=== PATIENT | male | born 2000 | race Two or more races ===

== ENCOUNTER 2024-04-13 05:21 | Emergency (ER) | payer SELFPAY ==
[2024-04-13 05:28] VITALS: BP 162/85; PULSE 83; TEMP 36.7; O2SAT 97; BMI 25.1
--- NOTE | 2024-04-13 05:43 | PC.NURSE ---
Pt presents to ER for a lump on his right testicle pt states this has been ongoing for 2 months Pt states he went to a clinic in [place] and was given a shot of something and Cipro Pt states he went back to the clinic 2 weeks ago and was given Flagyl and doxycycline - pt states he finished this course of antibiotics pt states they did not test him for any STD's but did test him for a UTI which was negative Pt states the lump size and pain level fluctuates depending on his daily activities
--- NOTE | 2024-04-13 06:38 | US_ITS ---
[facility] [id number] Patient Name: COCO PEREZ MRN: [id number] date: 2000 Sex: M Assigned Patient Location: ED.MAIN Current Patient Location: Accession/Order Number: [id number] Exam Date: 04/13/2024 07:08 Report Date: 04/13/2024 07:49 At the request of: ANUP MARKER Procedure: US scrotum doppler EXAMINATION: US scrotum doppler HISTORY: Right scrotal mass COMPARISON: No relevant comparison available. TECHNIQUE: High-resolution sonographic imaging of the scrotum and contents was performed. FINDINGS: RIGHT: TESTICLE: Homogeneous echotexture. No visible mass. Color Doppler flow is present. Spectral Doppler demonstrates normal arterial waveform and flow, 6/3 cm/s (PSV/EDV), and normal venous wave flow averaging 1 cm/s. EPIDIDYMIS: 6 mm cyst within head of left epididymis; otherwise unremarkable. OTHER: None. LEFT: TESTICLE: Homogeneous echotexture. No visible mass. Color Doppler flow is present. Spectral Doppler demonstrates arterial waveform and flow, 4/2 cm/s (PSV/EDV), and normal venous flow averaging 1 cm/s. EPIDIDYMIS: Normal size and echogenicity. OTHER: None. US/US scrotum doppler IMPRESSION: 1. Right epididymal head cysts which may account for the palpable lump. No suspicious findings. 2. Normal appearance of testicles bilaterally. 3. No hydrocele, significant varicocele, or appreciable mass. Electronically authenticated by: MICHAEL ARRIAZA Date: 04/13/2024 07:49
--- NOTE | 2024-04-13 06:38 | ED_ITS ---
HPI - Male Genitourinary General Chief complaint: Urogenital-Male Stated complaint: LUMP/BUMP Time Seen by Provider: 04/13/24 06:38 Source: patient Mode of arrival: walk-in Limitations: no limitations History of Present Illness HPI Narrative: This 23-year-old male presents for evaluation of a lump in his right scrotum. He states it has been there for the past several months. He has been seen several times at urgent care and placed on antibiotics. He states that since he has been on the antibiotics the lump has gone down. He explained to the nurse doing his triage that it was hurting him tonight. He is having a difficult time finding it in his scrotum during the exam. He denies any penile discharge. He states that his urine is bubbly. He states he has not been sexually active for over 1 year. He does not have any weight loss or night sweats. Related Data Allergies Allergy/AdvReac Type Severity Reaction Status Date / Time No Known Drug Allergies Allergy Verified 04/13/24 05:34 Review of Systems ROS Status of ROS 10 or more systems reviewed and unremark able except as noted in history and below Exam Narrative Exam Narrative: Exam chaperoned by Suri VARGAS Vital signs and Nursing Notes reviewed: Patient is afebrile with a normal pulse, blood pressure is elevated at 162/85, he is not hypoxic with pulse ox of 97% on room air General: Awake, alert, oriented, no acute distress, lying comfortably on the stretcher HEENT: Normocephalic atraumatic, mucous membranes are moist and pink, eyes are clear, normal conjunctiva, vision is grossly intact, posterior pharynx is normal in appearance. Chest: Lungs are clear to auscultation with good air entry, there is no wheezing rhonchi or rales appreciated no accessory muscle use, patient is speaking in complete sentences-no chest wall tenderness to palpation CVS: Regular rate and rhythm S1-S2, no murmurs rubs or gallops, pulses are brisk and equal bilaterally ABD: Soft, nondistended, nontender, no rebound guarding or rigidity, bowel sounds are normal, no pulsatile masses appreciated : Testicles are descended with a normal lie, I am unable to appreciate any mass in the patient's right or left testicle. No inguinal lymphadenopathy appreciated Extremities: Moving all extremities, no lower extremity tenderness or swelling noted, negative Homans' sign, pulses are brisk and equal bilaterally Skin: Normal in appearance without rash,pallor, petechiae or purpura Neuro: No focal deficits Constitutional Vital Signs, click to edit/add: Last Vital Signs Temp 98.1 F 04/13/24 05:28 Pulse 83 04/13/24 05:28 Resp 16 04/13/24 05:28 BP 162/85 H 04/13/24 05:28 Pulse Ox 97 04/13/24 05:28 Course Vital Signs Vital signs: Vital Signs Temperature 98.1 F 04/13/24 05:28 Pulse Rate 83 04/13/24 05:28 Respiratory Rate 16 04/13/24 05:28 Blood Pressure 162/85 H 04/13/24 05:28 Pulse Oximetry 97 04/13/24 05:28 Temperature 98.1 F 04/13/24 05:28 Pulse Rate 83 04/13/24 05:28 Respiratory Rate 16 04/13/24 05:28 Blood Pressure 162/85 H 04/13/24 05:28 Pulse Oximetry 97 04/13/24 05:28 MDM - Male Genitourinary MDM Narrative Medical decision making narrative: This 23-year-old male presents for evaluation of over 2 months of a lump in his right testicle. He has been seen in urgent care several times but has not had an ultrasound. He has been on several different antibiotics and states that the antibiotics helped the lump go down . He has a small pustule on the scrotal skin on the left. I am unable to appreciate any abnormality in the right testicle. Patient has normal testicular lie, normal cremasteric reflex, no mass appreciated. I did order an ultrasound as he has had this for greater than 2 months without an ultrasound. He will be signed out to the oncoming physician at 7 AM. Discharge Plan Discharge Chief Complaint: Urogenital-Male Clinical Impression: Scrotal anomaly Patient Disposition: Still a Patient Print Language: Azerbaijani Referrals: Physician,Non-Staff, [Primary Care Provider] - 1 week
[2024-04-13 08:06] LABS: Bilirubin Urine SMALL (NEGATIVE); Blood Urine NEGATIVE (NEGATIVE); Clarity Urine CLEAR (CLEAR); Color Urine YELLOW (YELLOW); Glucose Urine UA NEGATIVE (NEGATIVE); Ketones Urine 15 mg/dL (NEGATIVE); Leukocyte Esterase Urine NEGATIVE (NEGATIVE); Nitrite Urine NEGATIVE (NEGATIVE); Protein Urine NEGATIVE (NEG/TRACE); Specific Gravity Urine >=1.030 (1.005-1.025); Urobilinogen Urine 0.2 EU/dL (0.2-1.0)
[2024-04-13 08:20] LABS: Bacteria Urine NONE SEEN #/HPF (NONE SEEN); RBC Urine NONE SEEN #/HPF (0-2); WBC Urine NONE SEEN #/HPF (NONE SEEN)
[2024-04-13 08:21] LABS: Cast Seen? NONE SEEN #/LPF (NONE SEEN); Crystals Seen? None Seen #/HPF (None Seen); Mucus Urine LARGE (NONE SEEN); Squamous Epithelial Cell Urine NONE SEEN #/LPF (NONE/RARE)
== END 2024-04-13 08:10 | disposition home or self-care (01) ==
PROVIDERS: Emergency Medicine; Emergency Provider Emergency Medicine Emergency Medical Services
DX: N50.3 Cyst of epididymis (principal)
CPT/HCPCS: 76870; 81001; 93976; 99284

== ENCOUNTER 2025-04-10 18:00 | Emergency (ER) | payer BC, SELFPAY ==
[2025-04-10 18:07] VITALS: BP 125/87; PULSE 94; TEMP 36.9; O2SAT 100; BMI 22.2
[2025-04-10 18:36] LABS: Bilirubin Urine NEGATIVE (NEGATIVE); Blood Urine NEGATIVE (NEGATIVE); Clarity Urine CLEAR (CLEAR); Color Urine LT. YELLOW (YELLOW); Glucose Urine UA NEGATIVE (NEGATIVE); Ketones Urine NEGATIVE (NEGATIVE); Leukocyte Esterase Urine NEGATIVE (NEGATIVE); Nitrite Urine NEGATIVE (NEGATIVE); Protein Urine NEGATIVE (NEG/TRACE); Urine Microscopic Indicated NO
--- NOTE | 2025-04-10 18:46 | ED.MALEGU1 ---
HPI - Male Genitourinary General Chief complaint: Urogenital-Male Stated complaint: STD SYMPTOMS Time Seen by Provider: 04/10/25 18:06 Source: patient Mode of arrival: walk-in History of Present Illness HPI Narrative: 24 year old male presents to the ED with c/o bumps to his upper inner lip. Onset was within the past few days. Denies pain, injury, itching to the area. States he would like a herpes blood test. Reports history of cold sores. States he does have an uncomfortable lesion to his left cheek, lip area. He is also requesting GC/chlamydia testing. Denies fever, chills, abd pain, dysuria. Denies penile lesions, rash, discharge. Related Data Home Medications ?Medication ?Instructions ?Recorded ?Confirmed No Known Home Medications 04/10/25 04/10/25 Allergies Allergy/AdvReac Type Severity Reaction Status Date / Time No Known Drug Allergies Allergy Verified 04/10/25 18:07 Review of Systems ROS Constitutional Denies: fever or chills Ears, nose, mouth, and throat Denies: throat pain, neck pain, throat swelling, mouth pain, swelling of lips/tongue or ear pain Cardiovascular Denies: chest pain Respiratory Denies: shortness of breath Gastrointestinal Denies: abdominal pain, nausea or vomiting Genitourinary Denies: painful urination, urinary frequency, urinary urgency, blood in urine, genital pain, genital lesion, penile discharge or testicular pain Integumentary/Breast Reports: sores; Denies: rash PFSH PFSH Social History Little interest or pleasure in doing things: not at all Feeling down, depressed, or hopeless: not at all Exam Constitutional Vital Signs, click to edit/add: Last Vital Signs Temp 98.4 F 04/10/25 18:07 Pulse 94 H 04/10/25 18:07 Resp 16 04/10/25 18:07 BP 125/87 04/10/25 18:07 Pulse Ox 100 04/10/25 18:07 O2 Del Method Room Air 04/10/25 18:07 Common normals: no apparent distress and oriented x3 General appearance: cooperative [facility] Common normals: external ears normal and moist oral mucous membranes Other: White bumps of patient's concern to upper inner lip no appreciated at this time. Canker sore noted to left inner cheek area. No drainage. Eye Common normals: conjunctivae normal and no scleral icterus Neck & C-Spine Common normals: supple Respiratory Common normals: normal respiratory effort Effort & inspection: able to speak in complete sentences and symmetric chest movement Cardio Common normals: regular rate Other: Exam deferred for patient comfort; pt denied genital symptoms. Neuro Common normals: oriented x3, moves all extremities and no focal motor deficits Sensorium/orientation: awake and alert Speech: speech normal Course Vital Signs Vital signs: Vital Signs Temperature 98.4 F 04/10/25 18:07 Pulse Rate 94 H 04/10/25 18:07 Respiratory Rate 16 04/10/25 18:07 Blood Pressure 125/87 04/10/25 18:07 Pulse Oximetry 100 04/10/25 18:07 Oxygen Delivery Method Room Air 04/10/25 18:07 Temperature 98.4 F 04/10/25 18:07 Pulse Rate 94 H 04/10/25 18:07 Respiratory Rate 16 04/10/25 18:07 Blood Pressure 125/87 04/10/25 18:07 Pulse Oximetry 100 04/10/25 18:07 Oxygen Delivery Method Room Air 04/10/25 18:07 MDM - Male Genitourinary MDM Narrative Medical decision making narrative: GC/chlamydia testing was pending. Pt was advised he would need to follow up with a pcp for blood testing for herpes. He was given a list of primary care providers for follow up. Medical Records Attestation: I reviewed the patient's medical records. Lab Data Labs: Lab Results 04/10/25 Range/Units 18:20 Urine Color Lt. yellow (YELLOW) Urine Clarity Clear (CLEAR) Urine pH 7.0 (5.0-9.0) Ur Specific [place] 1.020 (1.005-1.025) Urine Protein Negative (NEG/TRACE) mg/dL Urine Glucose (UA) Negative (NEGATIVE) mg/dL Urine Ketones Negative (NEGATIVE) mg/dL Urine Occult Blood Negative (NEGATIVE) Urine Nitrite Negative (NEGATIVE) Urine Bilirubin Negative (NEGATIVE) Urine Urobilinogen 1.0 (0.2-1.0) EU/dL Ur Leukocyte Esterase Negative (NEGATIVE) Discharge Plan Discharge Chief Complaint: Urogenital-Male Clinical Impression: Concern about STD in male without diagnosis Patient Disposition: Home, Self-Care Time of Disposition Decision: 18:46 Condition: Good Mode of Transportation: Private Vehicle Prescriptions / Home Meds: No Action No Known Home Medications Print Language: Kiswahili Instructions: Genital Herpes Infection (ED), Sexually Transmitted Diseases (ED), Safe Sex Practices (ED), Oral Herpes Infection (ED) Referrals: Physician,Non-Staff, MD [Primary Care Provider] - 1 week Discharge Date/Time: 04/10/25 18:54
--- OUTSIDE RECORDS SUMMARY | 2025-04-10 18:53 | XMS_ITS | CCD ---
Author Organization [facility] Inform ion Partnership [facility] Care Team Providers Care Associate Biological Sales Name Role Phone NO FAMILY, PHYSICIAN Primary Care Provider Unava ilable Jorje Garcia DO Emergency Provider NO FAMILY, PHYSICIAN Primary Care Unavailable Jorje Garcia Attending Unavailable Jorje Garcia Admitting Unavailable Medications Current Medications Medication Drug Class(es) Dates Sig (Normalized) Sig (Original) doxycycline hyclate 100 mg oral capsule (1 source) Tetracycline-clas s Drug Start: 03-22-2025 take 1 capsule by mouth twice daily Doxycycline Hyclate 100 mg capsule Active 100 MG PO Twice daily 14 March 22, 2025 12:00am Problems Problem Classification Problem Date Documented Da te Episodic/Chronic Urinary tract infections (1 source) Urethritis; Translations: [Other urethritis] 03-22-2025 Episodic Results Test Name Value Interpretation Reference Range Facility Appearance of UrineOrdered B y: Jorje Garcia on 03-22-2025 Appearance (U) Urine appearance Clear [facility] Bacteria [Presence] in Urine by AutomatedOrdered By: Jorje Garcia on 03-22-2025 Bacteria Auto Ql (U) Bacteria [Presence] in Urine by Automated None Seen [facility] Bilirubin Test strip Ql (U)O rdered By: Jorje Garcia on 03-22-2025 Bilirubin Ql (U) Bilirubin.total [Presence] in Urine by Test strip Negative [facility] Chlamydia/GC/Trich NAAon Chlamydia Trachomotis, MALLY Negative Normal Negative [facility] Comment on above: Performed By: #### A DDONUAPLUS #### [facility] [address] [place] [address] #### GCCHLAMTRI #### [facility] , Neisseria Gonorrhoeae, MALLY Negative Normal Negative [facility] Comment on above: Performed By: #### A DDONUAPLUS #### [address] #### GCCHLAMTRI #### [facility] , Trichomonas MALLY Negative Normal Negative [facility] Comment on above: Result Comment: Perf ormed at: =G - [facility] [address] [id number] [employer] Worker: Bettie Monson MD, Phone: [phone] PERFORMED BY: [place] [address] PATHOLOGIST MANAGER PET JOHAN MARS M.D. Performed By: #### A DDONUAPLUS #### [address] #### GCCHLAMTRI #### [facility] , Color Auto (U)Ordered By: Gustavo Garcia on 03-22-2025 Color (U) Color of Urine by Auto Yellow [facility] Dipstick and Microscopicon 0 03-22-2025 Appearance (U) Clear Normal Clear [facility] Comment on above: Order Comment: Name Collection Type:: Clean-Voided Midstream Performed By: #### A DDONUAPLUS #### [address] #### GCCHLAMTRI #### [facility] , Bacteria,Urine Rare Normal None Seen [facility] Comment on above: Order Comment: Name Collection Type:: Clean-Voided Midstream Performed By: #### A DDONUAPLUS #### [address] #### GCCHLAMTRI #### [facility] , Bilirubin,Urine Negative Normal Negative [facility] Comment on above: Order Comment: Name Collection Type:: Clean-Voided Midstream Performed By: #### A DDONUAPLUS #### [address] #### GCCHLAMTRI #### [facility] , Color (U) Yellow Normal Yellow [facility] Comment on above: Order Comment: Name Collection Type:: Clean-Voided Midstream Performed By: #### A DDONUAPLUS #### [address] #### GCCHLAMTRI #### [facility] , Glucose Ql (U) Normal Normal Normal [facility] Comment on above: Order Comment: Name Collection Type:: Clean-Voided Midstream Performed By: #### A DDONUAPLUS #### [address] #### GCCHLAMTRI #### [facility] , Hyaline Casts,Urine None Normal 0-8 [facility] Comment on above: Order Comment: Name Collection Type:: Clean-Voided Midstream Performed By: #### A DDONUAPLUS #### [address] #### GCCHLAMTRI #### [facility] , Ketones Ql (U) Trace High Negative [facility] Comment on above: Order Comment: Name Collection Type:: Clean-Voided Midstream Performed By: #### A DDONUAPLUS #### [address] #### GCCHLAMTRI #### [facility] , Leukocyte esterase Test strip Ql (U) Negative Normal Negative [facility] Comment on above: Order Comment: Name Collection Type:: Clean-Voided Midstream Performed By: #### A DDONUAPLUS #### [address] #### GCCHLAMTRI #### [facility] , Mucus,Urine 4+ Critically abnormal [facility] Comment on above: Order Comment: Name Collection Type:: Clean-Voided Midstream Result Comment: PERF ORMED BY: [place] [address] PATHOLOGIST MANAGER PET JOHAN MARS M.D. Performed By: #### A DDONUAPLUS #### [address] #### GCCHLAMTRI #### [facility] , Nitrite,Urine Negative Normal Negative [facility] Comment on above: Order Comment: Name Collection Type:: Clean-Voided Midstream Performed By: #### A DDONUAPLUS #### [address] #### GCCHLAMTRI #### [facility] , Occult Blood,Urine Negative Normal Negative [facility] Comment on above: Order Comment: Name Collection Type:: Clean-Voided Midstream Result Comment: PERF ORMED BY: [place] [address] PATHOLOGIST MANAGER PET JOHAN MARS M.D. Performed By: #### A DDONUAPLUS #### [address] #### GCCHLAMTRI #### [facility] , pH (U) 6.0 [pH] Normal 5.0-9.0 [facility] Comment on above: Order Comment: Name Collection Type:: Clean-Voided Midstream Performed By: #### A DDONUAPLUS #### [address] #### GCCHLAMTRI #### [facility] , Protein (U) [Mass/Vol] 30 mg/dL High Negative [facility] Comment on above: Order Comment: Name Collection Type:: Clean-Voided Midstream Performed By: #### A DDONUAPLUS #### [address] #### GCCHLAMTRI #### [facility] , RBC,Urine 1-2 Normal 0-4 [facility] Comment on above: Order Comment: Name Collection Type:: Clean-Voided Midstream Performed By: #### A DDONUAPLUS #### [address] #### GCCHLAMTRI #### [facility] , Specificy [place],Urine 1.035 High 1.001-1.030 [facility] Comment on above: Order Comment: Name Collection Type:: Clean-Voided Midstream Performed By: #### A DDONUAPLUS #### [address] #### GCCHLAMTRI #### [facility] , Urobilinogen,Urine 2 mg/dL High Normal [facility] Comment on above: Order Comment: Name Collection Type:: Clean-Voided Midstream Performed By: #### A DDONUAPLUS #### [address] #### GCCHLAMTRI #### [facility] , WBC,Urine 1-2 Normal 0-4 [facility] Comment on above: Order Comment: Name Collection Type:: Clean-Voided Midstream Performed By: #### A DDONUAPLUS #### [place] [address] [place] #### GCCHLAMTRI #### [facility] , Epithelial cells.squamous [# /area] in Urine sediment by Automated countOrdered By: Jorje Garcia on 03-22-2025 Epithelial cells.squamous Auto (Urine sed) [#/Area] Epithelial cells.squamous [#/area] in Urine sediment by Automated count [facility] Erythrocytes [#/area] in Uri ne sediment by Automated countOrdered By: Jorje Garcia on 03-22-2025 RBC Auto (Urine sed) [#/Area] Erythrocytes [#/area] in Urine sediment by Automated count 0-4 [facility] Glucose [Mass/volume] in Uri ne by Test stripOrdered By: Jorje Garcia on 03-22-2025 Glucose Test strip (U) [Mass/Vol] Glucose [Mass/volume] in Urine by Test strip Normal [facility] Hemoglobin Test strip Ql (U) Ordered By: Jorje Garcia on 03-22-2025 Hemoglobin Ql (U) Hemoglobin [Presence] in Urine by Test strip Negative [facility] Hyaline casts [#/area] in Ur ine sediment by Automated countOrdered By: Jorje Garcia on 03-22-2025 Hyaline casts Auto (Urine sed) [#/Area] Hyaline casts [#/area] in Urine sediment by Automated count 0-8 [facility] Ketones Test strip Ql (U)Ord ered By: Jorje Garcia on 03-22-2025 Ketones Ql (U) Ketones [Presence] in Urine by Test strip High Negative [facility] Leukocyte esterase [Presence ] in Urine by Test stripOrdered By: Jorje Garcia on 03-22-2025 Leukocyte esterase Test strip Ql (U) Leukocyte esterase [Presence] in Urine by Test strip Negative [facility] Leukocytes [#/area] in Urine sediment by Automated countOrdered By: Jorje Garcia on 03-22-2025 WBC Auto (Urine sed) [#/Area] Leukocytes [#/area] in Urine sediment by Automated count 0-4 [facility] Mucus [Presence] in Urine by AutomatedOrdered By: Jorje Garcia on 03-22-2025 Mucus Auto Ql (U) Mucus [Presence] in Urine by Automated Abnormal [facility] Nitrite Test strip Ql (U)Ord ered By: Jorje Garcia on 03-22-2025 Nitrite Ql (U) Nitrite [Presence] in Urine by Test strip Negative [facility] Protein Test strip (U) [Mass /Vol]Ordered By: Jorje Garcia on 03-22-2025 Protein (U) [Mass/Vol] Protein [Mass/volume] in Urine by Test strip High Negative [facility] Specific gravity Test strip (U) [Rel density]Ordered By: Jorje Garcia on 03-22-2025 Specific gravity (U) [Rel density] Specific gravity of Urine by Test strip High 1.001-1.030 [facility] Urobilinogen Test strip (U) [Mass/Vol]Ordered By: Jorje Garcia on 03-22-2025 Urobilinogen (U) [Mass/Vol] Urobilinogen [Mass/volume] in Urine by Test strip High Normal [facility] pH Test strip (U)Ordered By: Jorje Garcia on 03-22-2025 pH (U) pH of Urine by Test strip 5.0-9.0 [facility] Vital Signs Date Time Vital Sign Value Performing Clinician Brayan curry 03-22-2025 06:14-0400 Body height 177.8 cm PHYSICIAN NO [facility] 03-22-2025 06:14-0400 Body temperature 98.2 [degF] PHYSICIAN NO [facility] 03-22-2025 06:14-0400 Body weight 71.8 kg PHYSICIAN NO [facility] 03-22-2025 06:14-0400 Diastolic blood pressure 84 mm[Hg] PHYSICIAN NO [facility] 03-22-2025 06:14-0400 Heart rate 97 /min PHYSICIAN NO [facility] 03-22-2025 06:14-0400 Respiratory rate 18 /min PHYSICIAN NO [facility] 03-22-2025 06:14-0400 SaO2% (BldA) [Mass fraction] 99 % PHYSICIAN NO [facility] 03-22-2025 06:14-0400 Systolic blood pressure 135 mm[Hg] PHYSICIAN NO [facility] Encounters Encounter Date Encounter Type Care Provider Facility Start: 03-22-2025 End: 03-22-2025 Emergency department patient visit PHYSICIAN NO [facility] Work Phone: Plan of Treatment Date Care Activity Detail Author Start: 03-22-2025 [facility] Chlamydia trachomati s DNA [Presence] in Unspecified specimen by MALLY with probe detection [facility] Neisseria gonorrhoea e DNA [Presence] in Unspecified specimen by MALLY with probe detection [facility] Patient Education Urethritis [facility] Work Phone: Patient referral [facility] Work Phone: Trichomonas vaginali s DNA [Presence] in Unspecified specimen by MALLY with probe detection [facility] Payers Date Payer Category Payer Self-pay 2025 Unknown [id number] ae [id number] Unknown [id number] Social History Date Type Detail Facility Start: 03-22-2025 Tobacco smoking stat [facility] Smoker (finding) [facility] Start: 03-22-2025 Sex Male (finding) [facility] Start: 2000 Sex Assigned At Male F [facility] Evaluation note Note Date & Type Note Facility Evaluation note No assessment information availa ble [facility] Work Phone: Chief Complaint and Reason for Visit Chief Complaint Admit Date STD Check March 22, 2025 6:09am Advance Directives No Advanced Directives Records Found Advance Directive Response Recorded Date/ Time Advance Directives No March 22, 2025 6:19am Summary Purpose Family History No Family History Records Found Additional Source Comments Care Teams (unrecognized sec tion and content) Team Status: Active Member Role Status Dates PHYSICIAN NO FAMILY Primary Care Provider Active Team Status: Inactive Member Role Status Dates PHYSICIAN NO FAMILY Primary Care Provider Active Start: March 22, 2025 End: March 22, 2025 Jorje Garcia DO Emergency Provider Active St art: March 22, 2025 End: March 22, 2025 Goals (unrecognized section and content) Goals may be documented in a n alternate section (unrecognized sect ion and content) No Status Records Found INFORMATION SOURCE (unrecogn ized section and content) DATE CREATED AUTHOR 03/24/2025 [facility] FOR RECORDS PERTAINING TO PATIENTS WHO ARE OR HAVE BEEN ENROLLED IN A CHEMICAL DEPENDENCY/SUBSTANCEABUSE PROGRAM, SOME INFORMATION MAY BE OMITTED. This clinical summary was aggregated from multiple sources. Caution should be exercised in using it in the provision of clinical care. This summary normalizes information from multiple sources, and as a consequence, information in this document may materially change the coding, format and clinical context of patient data. In addition, data may be omitted in some cases. CLINICAL DECISIONS SHOULD BE BASED ON THE PRIMARY CLINICAL RECORDS. [facility]. provides no warranty or guarantee of the accuracy or completeness of information in this document.
[2025-04-13 04:08] LABS: Neisseria gonorrhoeae, NAA Negative (Negative)
== END 2025-04-10 18:54 | disposition home or self-care (01) ==
PROVIDERS: Nurse Practitioner Family; Emergency Provider Emergency Medicine
DX: Z20.2 Contact with and (suspected) exposure to infections with a predominantly sexual mode of transmission (principal); K13.79 Other lesions of oral mucosa
CPT/HCPCS: 81003; 87491; 87591; 99284

== ENCOUNTER 2025-07-26 09:52 | Emergency (ER) | payer BC, SELFPAY ==
[2025-07-26 10:00] VITALS: BP 134/83; PULSE 82; TEMP 36.9; O2SAT 98; BMI 23.0
--- OUTSIDE RECORDS SUMMARY | 2025-07-26 10:12 | XMS_ITS | CCD ---
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 ADDONUAPLUS #### [address] Occult Blood,Urine Negative Normal Negative [facility] Comment on above: Order Comment: Name Collection Type:: Clean-Voided Midstream Result Comment: PERF ORMED BY: [place] [address] PATHOLOGIST DOG CATCHER JOHAN MARS M.D. Performed By: #### G CCHLAMTRI #### [facility] , #### ADDONUAPLUS #### [address] pH (U) 6.0 [pH] Normal 5.0-9.0 [facility] Comment on above: Order Comment: Name Collection Type:: Clean-Voided Midstream Performed By: #### G CCHLAMTRI #### [facility] , #### ADDONUAPLUS #### [address] Protein (U) [Mass/Vol] 30 mg/dL High Negative [facility] Comment on above: Order Comment: Name Collection Type:: Clean-Voided Midstream Performed By: #### G CCHLAMTRI #### [facility] , #### ADDONUAPLUS #### [address] RBC,Urine 1-2 Normal 0-4 [facility] Comment on above: Order Comment: Name Collection Type:: Clean-Voided Midstream Performed By: #### G CCHLAMTRI #### [facility] , #### ADDONUAPLUS #### [place] [address] [place] Specificy [place],Urine 1.035 High 1.001-1.030 [facility] Comment on above: Order Comment: Name Collection Type:: Clean-Voided Midstream Performed By: #### G CCHLAMTRI #### [facility] , #### ADDONUAPLUS #### [facility] [address] Urobilinogen,Urine 2 mg/dL High Normal [facility] Comment on above: Order Comment: Name Collection Type:: Clean-Voided Midstream Performed By: #### G CCHLAMTRI #### [facility] , #### ADDONUAPLUS #### [facility] [address] [place] [address] WBC,Urine 1-2 Normal 0-4 [facility] Comment on above: Order Comment: Name Collection Type:: Clean-Voided Midstream Performed By: #### G CCHLAMTRI #### [facility] , #### ADDONUAPLUS #### [address] Epithelial cells.squamous [# /area] in Urine sediment by Automated countOrdered By: Jorje Garcia on 03-22-2025 Epithelial cells.squamous Auto (Urine sed) [#/Area] Epithelial cells.squamous [#/area] in Urine sediment by Automated count [facility] Erythrocytes [#/area] in Uri ne sediment by Automated countOrdered By: Jorje Garcia on 03-22-2025 RBC Auto (Urine sed) [#/Area] Erythrocytes [#/area] in Urine sediment by Automated count 0-4 [facility] Glucose [Mass/volume] in Uri ne by Test stripOrdered By: Jroje Garcia on 03-22-2025 Glucose Test strip (U) [Mass/Vol] Glucose [Mass/volume] in Urine by Test strip Normal [facility] Hemoglobin Test strip Ql (U) Ordered By: Jorje Garcia on 03-22-2025 Hemoglobin Ql (U) Hemoglobin [Presence ] in Urine by Test strip Negative [facility] Hyaline casts [#/area] in Ur ine sediment by Automated countOrdered By: Jorje Garcia on 03-22-2025 Hyaline casts Auto (Urine sed) [#/Area] Hyaline casts [#/area] in Urine sediment by Automated count 0-8 [facility] Ketones Test strip Ql (U)Ord ered By: Jorje Garcia on 03-22-2025 Ketones Ql (U) Ketones [Presence] i n Urine by Test strip High Negative [facility] Leukocyte esterase [Presence ] in Urine by Test stripOrdered By: Jorje Garcia on 03-22-2025 Leukocyte esterase Test strip Ql (U) Leukocyte esterase [Presence] in Urine by Test strip Negative [facility] Leukocytes [#/area] in Urine sediment by Automated countOrdered By: Jorje Garcia on 03-22-2025 WBC Auto (Urine sed) [#/Area] Leukocytes [#/area] in Urine sediment by Automated count 0-4 [facility] Mucus [Presence] in Urine by AutomatedOrdered By: Jorje Garcia on 03-22-2025 Mucus Auto Ql (U) Mucus [Presence] in Urine by Automated Abnormal [facility] Nitrite Test strip Ql (U)Ord ered By: Jorje Garcia on 03-22-2025 Nitrite Ql (U) Nitrite [Presence] i n Urine by Test strip Negative [facility] Protein Test strip (U) [Mass /Vol]Ordered By: Jorje Garcia on 03-22-2025 Protein (U) [Mass/Vol] Protein [Mass/volume] in Urine by Test strip High Negative [facility] Specific gravity Test strip (U) [Rel density]Ordered By: Jorje Garcia on 03-22-2025 Specific gravity (U) [Rel density] Specific gravity of Urine by Test strip High 1.001-1.030 [facility] Urobilinogen Test strip (U) [Mass/Vol]Ordered By: Jorje Garcia on 03-22-2025 Urobilinogen (U) [Mass/Vol] Urobilinogen [Mass/volume] in Urine by Test strip High Normal [facility] pH Test strip (U)Ordered By: Jorje Garcia on 03-22-2025 pH (U) pH of Urine by Test strip 5.0-9.0 [facility] Vital Signs Date Time Vital Sign Value Performing Clinician Faci lity 03-22-2025 06:14-0400 Body height 177.8 cm PHYSICIAN NO [facility] 03-22-2025 06:14-0400 Body temperature 98.2 [degF] PHYSICIAN NO [facility] 03-22-2025 06:14-0400 Body weight 71.8 kg PHYSICIAN NO [facility] 03-22-2025 06:14-0400 Diastolic blood pressure 84 mm[Hg] PHYSICIAN NO [facility] 03-22-2025 06:14-0400 Heart rate 97 /min PHYSICIAN NO [facility] 03-22-2025 06:14-0400 Respiratory rate 18 /min PHYSICIAN NO [facility] 03-22-2025 06:14-0400 SaO2% (BldA) [Mass fraction] 99 % PHYSICIAN NO [facility] 03-22-2025 06:14-0400 Systolic blood pressure 135 mm[Hg] PHYSICIAN NO [facility] Encounters Encounter Date Encounter Type Care Provider Facility Start: 07-12-2025 ambulatory MD Travis Rebollar [facility] ity:[facility] Start: 04-15-2025 ambulatory Facility:[facility] Start: 04-12-2025 End: 04-12-2025 Lab Drop off Travis Rebollar [facility] Start: 04-12-2025 End: 04-12-2025 ambulatory MD Travis Rebollar Facility:[facility] Start: 04-11-2025 ambulatory MD Travis Rebollar Facility :[facility] Start: 03-22-2025 End: 03-22-2025 Emergency department patient visit PHYSICIAN NO [facility] Work Phone: Plan of Treatment Date Care Activity Detail Author Start: 03-22-2025 [facility] Chlamydia trachomati s DNA [Presence] in Unspecified specimen by MALLY with probe detection [facility] Neisseria gonorrhoea e DNA [Presence] in Unspecified specimen by MALLY with probe detection [facility] Patient Education Urethritis [facility] Work Phone: Patient referral [facility] Work Phone: Trichomonas vaginali s DNA [Presence] in Unspecified specimen by MALLY with probe detection [facility] Payers Date Payer Category Payer Self-pay 2024 Private Health Insurance [id number] 2024 Unknown [id number] 2001 Unknown [id number] [id number] 2001 Unknown [id number] 2001 Unknown [id number] [id number] Unknown [id number] [id number] Social History Date Type Detail Facility Start: 03-22-2025 Tobacco smoking stat [facility] Smoker (finding) [facility] Start: 03-22-2025 Sex Male (finding) [facility] Start: 2000 Sex Assigned At Male [facility] Tobacco Current vaping o r e-cigarette use Smokeless Tobacco Use:. Vaping [facility] Tobacco smoking status [facility] Sex Assigned At Male [facility] Evaluation + Plan note Note Date & Type Note Facility Evaluation + Plan note Future Appointments Appointment Date:07/12/2025 09:20:00 AM Scheduled Provider:Travis Rebollar MD Location:[facility] Appointment Type: Open Diagnostic Tests PendingHIV Screen 4th Generation wRfx 04/12/25HCV Antibody RFX to Quant PCR 04/12/25 [facility] Evaluation note Note Date & Type Note Facility Evaluation note No assessment information availa [facility] Work Phone: Hospital course Narrative Note Date & Type Note Facility Hospital course Narrative No data available for this section [facility] Hospital Discharge instructions Note Date & Type Note Facility Hospital Discharge instructions No data available for this section [facility] Progress note Note Date & Type Note Facility Progress note No data available for this section [facility] Chief Complaint and Reason for Visit Chief [...] be documented in a n alternate section No data available for this section (unrecognized sect ion and content) No Status Records FoundNo Status Records FoundNo Status Records FoundNo Status Records FoundNo Status Records FoundNo Status Records FoundNo Status Records FoundNo Status Records FoundNo Status Records Found INFORMATION SOURCE (unrecogn ized section and content) DATE CREATED AUTHOR 04/14/2025 [facility] DATE CREATED AUTHOR AUTHOR'S ORGANIZ ATION 04/15/2025 [facility] DATE CREATED AUTHOR AUTHOR'S ORGANIZ ATION 04/16/2025 [facility] DATE CREATED AUTHOR AUTHOR'S ORGANIZ ATION 04/22/2025 [facility] FOR RECORDS PERTAINING TO PATIENTS WHO ARE [...] BE BASED ON THE PRIMARY CLINICAL RECORDS. [facility]. provides no warranty or guarantee of the accuracy or completeness of information in this document.
[2025-07-26] MEDS: CEFTRIAXONE 500 MG, LIDOCAINE HCL/PF 1 ML IM (10:56)
--- NOTE | 2025-07-26 11:45 | ED.MALEGU1 ---
HPI - Male Genitourinary General Chief complaint: Urogenital-Male Stated complaint: ITCHY Time Seen by Provider: 07/26/25 10:12 Source: patient Mode of arrival: walk-in History of Present Illness HPI Narrative: I had the patient come into the ER with a concern of burning and itching with urination that started after he was exposed to chlamydia by his partner, patient denies any other complaint although he mentioned that he does not have any rash or any fever or chills The patient has no other concerns at the moment Related Data Previous Rx's ?Medication ?Instructions ?Recorded doxycycline hyclate 100 mg tablet 100 mg PO BID 7 days #14 tabs 07/26/25 Allergies Allergy/AdvReac Type Severity Reaction Status Date / Time No Known Drug Allergies Allergy Verified 07/26/25 10:00 Review of Systems ROS Status of ROS 10 or more systems reviewed and unremarkable except as noted in history and below PFSH PFSH Social History Little interest or pleasure in doing things: not at all Feeling down, depressed, or hopeless: not at all Exam Narrative Exam Narrative: Nurses notes and vital signs reviewed and patient is not hypoxic. General: Well-appearing and in no apparent distress. Skin: Warm, dry, no pallor noted. No rash. Head: Normocephalic, atraumatic. Neck: Supple, non-tender. Eye: Pupils are equal, round and EOMI. No scleral icterus. Ears, Nose: . Oral mucosa is moist, no posterior oropharynx erythema, uvula is mid-line Cardiovascular: Regular Rate and Rhythm without murmur, gallop or rub. Respiratory: No accessory muscle use or respiratory distress. Lungs are clear to auscultation, no wheezing, rales or rhonchi Constitutional Vital Signs, click to edit/add: Last Vital Signs Temp 98.4 F 07/26/25 10:00 Pulse 82 07/26/25 10:00 Resp 16 07/26/25 10:00 BP 134/83 07/26/25 10:00 Pulse Ox 98 07/26/25 10:00 O2 Del Method Room Air 07/26/25 10:00 Course Vital Signs Vital signs: Vital Signs Temperature 98.4 F 07/26/25 10:00 Pulse Rate 82 07/26/25 10:00 Respiratory Rate 16 07/26/25 10:00 Blood Pressure 134/83 07/26/25 10:00 Pulse Oximetry 98 07/26/25 10:00 Oxygen Delivery Method Room Air 07/26/25 10:00 Temperature 98.4 F 07/26/25 10:00 Pulse Rate 82 07/26/25 10:00 Respiratory Rate 16 07/26/25 10:00 Blood Pressure 134/83 07/26/25 10:00 Pulse Oximetry 98 07/26/25 10:00 Oxygen Delivery Method Room Air 07/26/25 10:00 MDM - Male Genitourinary MDM Narrative Medical decision making narrative: Right now the patient urine was sent for chlamydia and gonorrhea testing The patient instructed about the importance of having a primary care visit once a year for testing of HIV and syphilis since he is sexually active And the patient also was treated with ceftriaxone in the ER discharged home with doxycycline Patient treated for urethritis and chlamydia exposure The patient is to follow up with primary care physician in next 2-3 days or to return to the emergency department should any of the signs or symptoms worsen or new symptoms develop. The patient agrees with the following Diagnosis and Treatment plan and the patient will be discharged home. Discharge Plan Discharge Chief Complaint: Urogenital-Male Clinical Impression: Urethritis, Exposure to chlamydia Patient Disposition: Home, Self-Care Time of Disposition Decision: 10:44 Condition: Good Prescriptions / Home Meds: New doxycycline hyclate 100 mg tablet 100 mg PO BID 7 Days Qty: 14 0RF Print Language: [place] Instructions: Urethritis (ED) Referrals: Physician,Non-Staff, MD [Primary Care Provider] - 1 week Discharge Date/Time: 07/26/25 11:05
[2025-07-28 12:10] LABS: Neisseria gonorrhoeae, NAA Negative (Negative)
--- NOTE | 2025-07-30 10:10 | PC.NURSE ---
Pt called inquired of STD results. Results provided and instructed that if he was still having symptoms he should follow up with PCP.
== END 2025-07-26 11:05 | disposition home or self-care (01) ==
PROVIDERS: Emergency Provider Emergency Medicine
DX: N34.2 Other urethritis (principal); Z20.2 Contact with and (suspected) exposure to infections with a predominantly sexual mode of transmission
CPT/HCPCS: 87491; 87591; 96372; 99284; J0696